=== PATIENT | male | born 1960 | race Caucasian/White ===

== ENCOUNTER 2017-01-29 07:31 | Day surgery (SDC) | payer OTHER ==
[2017-01-29] VITALS (12 sets, daily range): BP systolic 117–139; BP diastolic 56–79; PULSE 59–77; RESP 13–20; Ht 170.2 cm; Wt 112.0 kg
[~2017-01-29] VITALS: Ht 170.2 cm; Wt 112.0 kg
[~2017-01-29 07:31] MED LIST: BABY ASPIRIN; LANT3I SC; LISI-327 PO; METF1000 PO; SULI150T39 PO; VITD3
[2017-01-29] MEDS ORDERED: LANT3I SC (08:43)
[2017-01-29] MEDS ORDERED: METO-448 PO (08:45)
[2017-01-29] MEDS ORDERED: ASPI-664 PO (08:46)
[2017-01-29] MEDS ORDERED: TICA90TA PO (08:47)
[2017-01-29] MEDS ORDERED: METF1000 PO (08:52)
[2017-01-29] MEDS ORDERED: PRAV40TA76 PO (08:53)
[2017-01-29] MEDS ORDERED: CEFAZOLIN 1 GM INJ ONE (09:59)
[2017-01-29] MEDS ORDERED: FENTAnyl 50 MCG/ML VIAL ONE (09:59)
[2017-01-29] MEDS ORDERED: MIDAZOLAM 1 MG/ML 2 ML INJ ONE (09:59)
[2017-01-29] MEDS ORDERED: PROPOFOL 20 ML ONE (09:59)
--- NOTE | 2017-01-29 10:18 | RADRPT ---
PROCEDURE: XR Chest 1 View. CLINICAL INDICATION: Abnormal breath sounds, preop. TECHNIQUE: AP view of the chest was obtained. COMPARISON: None. FINDINGS: The cardiomediastinal silhouette is within normal limits. No consolidations are identified. No pneu mothorax is seen. Atelectasis is noted at the lung bases calcified granuloma is noted in the left lo wer lobe. Osseous structures are intact. IMPRESSION: Atelectasis at the lung bases. Calcified granuloma in the left lower lobe. RPTAT: AA .Nazario Elena MD, Date Time Electronically viewed and signed by .Nazario Elena MD, on 01/29/2017 10:18 .P/
[2017-01-29] MEDS ORDERED: ONDANSETRON 4 MG INJ IV PRN (10:30)
[2017-01-29] MEDS ORDERED: LABETALOL HCL 20MG INJ IV PRN (10:30)
[2017-01-29] MEDS ORDERED: EPHEDrine SULFATE 50 MG/5 ML SYG IV PRN (10:30)
[2017-01-29] MEDS ORDERED: morphine (1 MG/ML) 10ML SYRINGE IV PRN ×3 (10:30)
[2017-01-29] MEDS ORDERED: OXYCODONE/ACETAMINOPHEN (5/325) TAB PO PRN ×2 (10:30)
[2017-01-29] MEDS ORDERED: METOCLOPRAMIDE 10 MG INJ IV PRN (10:30)
[2017-01-29] MEDS ORDERED: hydrALAzine 20 MG INJ IV PRN (10:30)
[2017-01-29] MEDS ORDERED: HYDROmorphONE (0.2 MG/ML) 10ML SYG IV PRN ×3 (10:30)
[2017-01-29] MEDS ORDERED: BUPIVACAINE 0.5% (SDV) 30 ML INJ ONE (10:40)
[2017-01-29] MEDS ORDERED: LIDOCAINE 2% (MDV) 20 ML INJ ONE (10:40)
[2017-01-29] MEDS ORDERED: KETOROLAC 30 MG INJ ONE (10:48)
[2017-01-29] MEDS ORDERED: DEXAMETHASONE 4 MG/ML 1 ML INJ ONE (10:48)
[2017-01-29] MEDS ORDERED: METOCLOPRAMIDE 10 MG INJ ONE (10:48)
[2017-01-29] MEDS ORDERED: ONDANSETRON 4 MG INJ ONE (10:48)
--- NOTE | 2017-01-29 10:54 | OPR ---
Date/Time of Note Date/Time of Note DATE: 01/29/17 TIME: 10:53 Operative Report Preoperative Diagnosis left thigh mass Postoperative Diagnosis same Operation/Procedure Performed excise left thigh mass 5 cm incision 5 cm mass localized adjacent tissue transfer with the use of skin flaps 15 sq cm defect therapeutic injection of subcutaneous local anesthesia Surgeon: Nisha GRADY Specimens left thigh mass Nisha GRADY Jan 29, 2017 10:54
[2017-01-29] MEDS ORDERED: ACETAMINOPHEN/CODEINE #3 TAB PO ONE (11:00)
== END 2017-01-29 12:55 | disposition home or self-care (01) ==
LOC: SDS 07:31 → EDBD 09:00 → SDS 12:55
PROVIDERS: ATTEND Surgery
DX: D18.01 Hemangioma of skin and subcutaneous tissue (principal); I10 Essential (primary) hypertension; E11.9 Type 2 diabetes mellitus without complications
CPT/HCPCS: 14021; 71010; 82962; 88307; J0690; J1100; J1885; J2250; J2405; J2765; J3010; Z7512; Z7610

== ENCOUNTER 2017-02-16 22:47 | Emergency (ER) | payer OTHER ==
[~2017-02-16] VITALS: Ht 170.2 cm; Wt 112.5 kg
[~2017-02-16 22:47] MED LIST changes: +ASPI-664 PO; -BABY ASPIRIN; +METO-448 PO; +PRAV40TA76 PO; -SULI150T39 PO; +TICA90TA PO; -VITD3
[2017-02-16 22:56] VITALS: Ht 170.2 cm; Wt 112.5 kg
--- NOTE | 2017-02-16 23:03 | ERD ---
ER Documentation Chief Complaint Date/Time DATE: 02/16/17 TIME: 23:03 Chief Complaint wound check left lateral thigh, c/o yellow/greenish drainage HPI This is a 56-year-old male who presents to the emergency room for evaluation of a wound check to his left lateral thigh. The patient is postop day #18 from a left thigh mass excision done by Dr. marie. The patient does state that yesterday he noticed some green pus from the area. He denies any fevers or chills associated with this. The patient does state he is diabetic and was concerned and came to the ER for evaluation. This patient denies any nausea or vomiting associated with this. Denies any pain over the site ROS All systems reviewed and are negative except as per history of present illness. Medications Home Meds Reported Medications Pravastatin Sodium* (Pravastatin Sodium*) 40 Mg Tablet, 40 MG PO HS, TAB 01/29/17 Metformin Hcl* (Metformin Hcl*) 1,000 Mg Tablet, 1000 MG PO WITH BREAKFAST DINNE , #30 TAB 01/29/17 Ticagrelor* (Brilinta*) 90 Mg Tablet, 90 MG PO Q12, TAB 01/29/17 Aspirin (Low Dose Aspirin) 81 Mg Tablet.dr, 81 MG PO DAILY, #30 TAB 01/29/17 Metoprolol Tartrate* (Lopressor*) 25 Mg Tab, 25 MG PO BID, #60 TAB 01/29/17 Insulin Glargine* (Lantus*) 100 Unit/Ml Soln, 42 UNIT SC AC LUNCH, #1 VIAL 01/29/17 Lisinopril-Hydrochlorothiazide (Lisinopril-HCTZ) 20-12.5 Mg Tab, 1 TAB PO DAILY , TAB 05/06/14 Allergies Allergies: Coded Allergies: No Known Allergy (Unverified , 02/16/17) PMhx/Soc History of Surgery: Yes (KNEE X2, STENT PLACEMENT ) Anesthesia Reaction: No Hx Neurological Disorder: No Hx Respiratory Disorders: Yes (SLEEP APNEA ON C PAP AT NIGHT ) Hx Cardiac Disorders: Yes (HTN , STENT PLACEMENT ) Hx Psychiatric Problems: No Hx Miscellaneous Medical Probl: No Hx Alcohol Use: No Hx Substance Use: No Hx Tobacco Use: No (STOPPED IN 1996) Physical Exam Vitals Vital Signs Date Time Temp Pulse Resp B/P Pulse Ox O2 Delivery O2 Flow Rate FiO2 02/16/17 22:56 98.4 65 20 132/72 98 Physical Exam Const: No acute distress Head: Atraumatic Eyes: Normal Conjunctiva ENT: Normal External Ears, Nose and Mouth. Neck: Full range of motion..~ No meningismus. Resp: Clear to auscultation bilaterally Cardio: Regular rate and rhythm, no murmurs Abd: Soft, non tender, non distended. Normal bowel sounds Skin: Healing incision on the left lateral thigh, mild surrounding area of cellulitis, no purulent discharge noted. No petechiae or rashes Back: No midline or flank tenderness Ext: No cyanosis, or edema Neur: Awake and alert Psych: Normal Mood and Affect Procedures/MDM This 56-year-old male presents to the emergency room for evaluation of a postop wound. The patient did state that he had some purulent discharge. I did not note any purulent discharge per small area surrounding cellulitis. This patient does have a follow-up appointment on February [address] Marie. The patient is nontoxic appearing and in no acute distress and is hemodynamically stable. The patient was given Keflex and Bactrim in the emergency room and will be discharged home at this time with a prescription for Bactrim and Keflex Departure Diagnosis: Primary Impression: Encounter for wound re-check Additional Impression: Cellulitis, leg Condition: Stable DARCY MACEDO DO Feb 16, 2017 23:03
[2017-02-16] MEDS ORDERED: SULF1TAB31 PO (23:08)
[2017-02-16] MEDS ORDERED: CEPH-443 PO (23:08)
[2017-02-16 23:12] VITALS: BP 128/77; PULSE 68; RESP 20; TEMP 98.4
[2017-02-16] MEDS ORDERED: CEPHALEXIN 500 MG CAP PO ONE (23:30)
[2017-02-16] MEDS ORDERED: TRIMETHOPRIM/SULFAMETHOX (DS) TAB PO ONE (23:30)
== END 2017-02-16 23:30 | disposition home or self-care (01) ==
LOC: E/R 22:47
DX: M96.89 Other intraoperative and postprocedural complications and disorders of the musculoskeletal system (principal); L03.116 Cellulitis of left lower limb; I10 Essential (primary) hypertension; Z48.01 Encounter for change or removal of surgical wound dressing; Z98.61 Coronary angioplasty status; Z79.82 Long term (current) use of aspirin
CPT/HCPCS: Z7610 ×2; 99284